=== PATIENT | male | born 1945 | race Two or more races ===

== ENCOUNTER 2016-09-15 07:59 | Day surgery (SDC) | payer OTHER ==
[~2016-09-15] VITALS: Ht 167.6 cm; Wt 67.0 kg
[2016-09-15] VITALS (12 sets, daily range): BP systolic 105–154; BP diastolic 61–77; PULSE 76–96; RESP 11–25; Ht 167.6 cm; Wt 67.0 kg
[~2016-09-15 07:59] MED LIST: CEFAZOLIN 1 GM INJ ONE; CEFAZOLIN 2 GM/50 ML (PMX) 50 ML IVPB SCH; SOD CHLORIDE 0.9% 1,000 ML IV SCH
[2016-09-15] MEDS ORDERED: DOXA4TAB3 PO (09:05)
[2016-09-15] MEDS ORDERED: POLYMYXIN/BACITRACIN 1L IRRIG ONE (09:47)
[2016-09-15] MEDS ORDERED: BUPIVACAINE 0.25% (MPF) 30 ML INJ ONE (09:47)
[2016-09-15] MEDS ORDERED: FENTAnyl 50 MCG/ML VIAL ONE (09:57)
[2016-09-15] MEDS ORDERED: MIDAZOLAM 1 MG/ML 2 ML INJ ONE (09:57)
[2016-09-15] MEDS ORDERED: DIPHENHYDRAMINE 50 MG INJ IV PRN (10:00)
[2016-09-15] MEDS ORDERED: FENTAnyl 50 MCG/ML VIAL IV PRN (10:00)
[2016-09-15] MEDS ORDERED: MEPERIDINE 25 MG INJ IV PRN (10:00)
[2016-09-15] MEDS ORDERED: morphine (1 MG/ML) 10ML SYRINGE IV PRN (10:00)
[2016-09-15] MEDS ORDERED: ONDANSETRON 4 MG INJ IV PRN (10:00)
[2016-09-15] MEDS ORDERED: ONDANSETRON 4 MG INJ ONE (10:46)
[2016-09-15] MEDS ORDERED: GLYCOPYRROLATE 0.4 MG INJ ONE (10:46)
[2016-09-15] MEDS ORDERED: LIDOCAINE 2% (SDV) 5 ML INJ ONE (10:46)
[2016-09-15] MEDS ORDERED: NEOSTIGMINE 3 MG/3 ML SYRINGE ONE (10:46)
[2016-09-15] MEDS ORDERED: ROCURONIUM 50 MG INJ ONE (10:46)
[2016-09-15] MEDS ORDERED: ETOMIDATE 20 MG INJ ONE (10:46)
[2016-09-15] MEDS ORDERED: HYDROCODONE/APAP (5/325) TAB PO ONE (11:00)
--- NOTE | 2016-09-15 11:13 | OPR ---
DATE OF OPERATION: 09/15/2016 INDICATION: This is a 71-year-old male with a right inguinal hernia. He requests surgical repair. Risks, alternatives, benefits, and personnel were discussed with patient. Patient expressed unders tanding, consents to operation. PREOPERATIVE DIAGNOSIS: Right inguinal hernia. POSTOPERATIVE DIAGNOSIS: Right inguinal hernia. OPERATION: Open right inguinal hernia repair with medium size Ultrapro hernia system mesh. SURGEON: Fraknlyn Metz MD COMPLICATIONS: None. ANESTHESIA: General. DESCRIPTION OF PROCEDURE: The patient was taken to the OR and prepped and draped in usual sterile f ashion. Surgical timeout was performed. IV antibiotics were given. Right inguinal oblique incisio n was made with a 10 blade. Dissection cautery was carried down to external oblique fascia which wa s opened with a 15 blade. This incision is extended medial inferiorly and lateral superiorly with M etzenbaum scissors. Cord structures were identified and encircled with a [place] drain. Direct her gaby was identified and buttressed with the disk portion of the UltraPro hernia system mesh which was secured in place a running 0 Prolene from the pubic tubercle along the shelving edge of the inguina l ligament and superiorly secured to the internal oblique with interrupted 3-0 Vicryl. [place]lay mesh i s secured in a similar fashion with a running 0 Prolene from the pubic tubercle along shelving edge of the inguinal ligament. Straps are created and reapproximated with interrupted 0 Prolene to recre ate the inguinal ring. An onlay mesh was secured to the internal oblique with interrupted 3-0 Vicry l. External oblique fascia was closed with running 3-0 Vicryl. Krystyna's was closed with interrupte d 3-0 Vicryl. Skin was closed using skin haritha. Local anesthesia was injected. Dry dressings we re applied. Dictated By: FRANKLYN PENALOZA/LUCI Conf#: [id number] DID#: [id number]
== END 2016-09-15 12:55 | disposition home or self-care (01) ==
LOC: SDS 07:59
PROVIDERS: ATTEND Surgery
DX: K40.90 Unilateral inguinal hernia, without obstruction or gangrene, not specified as recurrent (principal); E78.5 Hyperlipidemia, unspecified
CPT/HCPCS: 49505; C1781; J0690; J2175; J2250; J3010; J2405; J2710